=== PATIENT | male | born 1985 | race Caucasian/White ===

== ENCOUNTER 2017-06-20 11:54 | Emergency (ER) | payer SELFPAY ==
[2017-06-20] MEDS: ACETAMINOPHEN 500 MG TABLET PO ×2 (12:28)
== END 2017-06-20 13:48 | disposition home or self-care (01) ==
LOC: ER 11:54
DX: S61.012A Laceration without foreign body of left thumb without damage to nail, initial encounter (principal); W26.8XXA Contact with other sharp object(s), not elsewhere classified, initial encounter; Y93.89 Activity, other specified; Y92.89 Other specified places as the place of occurrence of the external cause; Y99.8 Other external cause status
CPT/HCPCS: 73140; 99284